=== PATIENT | female | born 1950 | race Asian ===

== ENCOUNTER 2020-05-20 08:34 | Outpatient (CLI) | payer MEDICARE, SELFPAY ==
--- NOTE | 2020-05-20 08:41 | MM_ITS ---
WS: [id number] RIGHT DIGITAL MAMMOGRAPHY WITH CAD CLINICAL INFORMATION: HX OF BREAST CA;LT MASTECTOMY COMPARISON: None. TECHNIQUE: 3 views of the right breast were obtained. FINDINGS: History of bilateral breast reduction. History of left mastectomy. The right breast is composed of heterogeneous fibroglandular density tissue, which can limit the dete ction of small underlying mass lesions. A few punctate calcifications. Vascular calcification. No suspicious focal mass, asymmetry, calcifications, or architectural distortion. No evidence of tan gnancy. MM/[place] [id number] IMPRESSION: BI-RADS: 2-Benign FOLLOW UP: 1 Year Follow-up Recommend return to annual diagnostic mammography.
== END 2020-05-20 08:35 | disposition home or self-care (01) ==
LOC: RADSHAW 08:38
PROVIDERS: PCP Electrodiagnostic Medicine; Visit Provider Electrodiagnostic Medicine
DX: Z85.3 Personal history of malignant neoplasm of breast (principal); Z90.12 Acquired absence of left breast and nipple
CPT/HCPCS: 77065

== ENCOUNTER 2020-07-02 16:51 | Emergency (ER) | payer MEDICARE, SELFPAY ==
[2020-07-02 17:00] VITALS: BP 195/103; PULSE 90; RESP 18; TEMP 36.6; O2SAT 96; BMI 24.0
--- NOTE | 2020-07-02 17:47 | W.ED.SOB ---
HPI - SOB/Dyspnea General: Chief Complaint: Shortness of Breath/Dyspnea Stated Complaint: SHORTNESS OF BREATH, POSS SINUS INFECTION Time Seen by Provider: 07/02/20 17:09 History of Present Illness: HPI Narrative: The patient is a 70-year-old female who is complained of a few days of sinus infection treated by her primary care doctor with Bactrim. She is taken 2 to 3 days of this medication and complains of some sinus pressure but it is slightly improving however her throat has become irritated and she feels like she has thick mucus in it she cannot get out. She is wondering if there is anything she can take to help with this. I discussed with her it is most likely postnasal drip and to use saline spray, guaifenesin, and we will discharge her with a steroid pack to help with the swelling. Return to the ER with worsening symptoms otherwise follow-up with your primary care physician in a couple days to monitor improvement of symptoms Associated symptoms: Deny abdominal pain, chest congestion, chest pain, cough, dizziness, extremity pain, fever(s), lightheadedness, myalgias, nausea, polyuria, rash or vomiting Review of Systems General: Reports: 10 or more systems reviewed and unremarkable except in HPI and below Const: Denies: fever(s) Eyes: Denies: change in vision, blurry vision or eye redness ENMT: Denies: throat pain, enlarged tonsils, odynophagia, swelling of lips/tongue, ear or mastoid pain or nasal congestion Card: Denies: chest pain or lightheadedness Resp: Denies: chest congestion GI: Denies: abdominal pain, nausea or vomiting : Denies: flank pain, difficulty voiding, urinary frequency or urinary urgency Musc: Denies: neck pain, back pain, extremity pain, joint pain, joint redness, limited range of motion or muscle weakness Skin/Breast: Denies: rash, pruritus, erythema, skin pain or skin tenderness Neuro: Denies: dizziness Psych: Denies: anxiety or depression Endo: Denies: polyuria All/Imm: Denies: urticaria, throat swelling or tongue swelling Physical Exam Const: COMMON NORMALS: no acute distress, average body habitus, patient oriented x3, no limitations, healthy appearing, alert and well nourished GENERAL APPEARANCE: cooperative, comfortable, well kempt and well developed ORIENTATION/CONSCIOUSNESS: Yes awake, Yes oriented to person, Yes oriented to place and Yes oriented to time HENMT: COMMON NORMALS: normocephalic, external ears normal and Normal external nose present HEAD & SCALP: normal to inspection and normocephalic NOSE: Normal external nose present EXTERNAL EAR: Yes external ears normal MOUTH: Normal oral and palatal mucosa present THROAT: posterior oropharynx normal OTHER: Mild nasal mucosal edema. Both nares are patent Eye: COMMON NORMALS: Equal, round and reactive pupils present and EOMs intact bilaterally GENERAL EYE: appearance normal, both eyes and all related structures PUPIL: Yes Equal, round and reactive pupils present Neck/C-Spine: COMMON NORMALS: full ROM, no lymphadenopathy, no meningeal signs and no JVD GENERAL: Yes normal visual inspection Lymph: LYMPHATIC: no lymphadenopathy noted Chest: COMMONS NORMALS: normal inspection of the chest and normal palpation of entire chest wall Resp: COMMON NORMALS: normal respiratory effort, No retractions, No use of accessory muscles, clear to auscultation bilaterally and percussion normal EFFORT & INSPECTION: Yes able to speak in complete sentences AUSCULTATION: clear to auscultation bilaterally PERCUSSION: percussion normal Cardio: COMMON NORMALS: no JVD, regular rate, regular rhythm, S1 normal heart sound present, S2 normal heart sound present and Peripheral pulses 2+ throughout RATE: regular rate RHYTHM: regular rhythm HEART SOUNDS: S1 normal heart sound present and S2 normal heart sound present PERIPHERAL PULSES: Peripheral pulses 2+ throughout GI: COMMON NORMALS: Normal to inspection, nondistended, normoactive bowel sounds present, Soft to palpation, non-tender and no masses INSPECTION: Yes normal to inspection PALPATION: Yes Soft to palpation : COMMON NORMALS: Yes no CVA tenderness BLADDER/KIDNEY EXAM: Yes no CVA tenderness Back/Pelvis: COMMON NORMALS: no CVA tenderness, thoracic and lumbar spine normal to inspection, no thoracic nor lumbar tenderness and thoraco-lumbar ROM normal Extremity: COMMON NORMALS: normal to inspection, full ROM, capillary refill normal, no joint enlargement and no pedal edema GENERAL: Yes normal exam except as noted Neuro: COMMON NORMALS: patient oriented x3, CN's II-XII intact bilaterally, moves all extremities, no focal motor deficits, no sensory deficits noted and gait normal SENSORIUM/ORIENTATION: Yes alert, Yes oriented to person, Yes oriented to place and Yes oriented to time MENINGEAL SIGNS: Yes no meningeal signs Psych: COMMON NORMALS: mental status grossly normal, Normal thought process present, cooperative, normal affect and speech normal APPEARANCE: Yes well kempt ATTITUDE: Yes calm SPEECH: Yes normal speech THOUGHT PROCESS: Normal thought process present Skin: COMMON NORMALS: no rashes or lesions noted GENERAL SKIN EXAM: no rashes or lesions noted Course Vital Signs: Vital signs: Vital Signs Temperature 97.9 F 07/02/20 17:00 Pulse Rate 90 07/02/20 17:00 Respiratory Rate 18 07/02/20 17:00 Blood Pressure 195/103 07/02/20 17:00 Pulse Oximetry 96 07/02/20 17:00 MDM - SOB/Dyspnea MDM Narrative: Medical decision making narrative: The patient is being treated for a sinus infection with Bactrim and most likely has postnasal drip. Recommended nasal spray saline spray and guaifenesin [id number]. Will discharge with Medrol Dosepak as well. Continue Bactrim. Follow-up with primary care physician in 3 to 5 days and return to the ER with worsening symptoms Discharge Plan Discharge Patient Disposition: Home Clinical Impression: Post-nasal drip Condition: Stable Prescriptions: New Medrol ([place]) 4 mg tablets,dose pack See Rx Instructions .ROUTE .COMPLEX Qty: 21 RF: 0 Discharge Orders: Discharge ED (Routine); Ordered 07/02/20 Ordered By: Ruiz Sebastian Referrals: Radhames Quintero DO [Primary Care Provider] - Discharge Diet: Advance as tolerated Discharge Activity: Increase activity as tolerated Patient Instructions: Sinusitis (ED) Activity Restrictions/Additional Instructions: You have postnasal drip from a sinus infection. Please take the steroids to help with this and continue taking your Bactrim antibiotic. You may also help loosen up the mucus with nasal saline [id number] at a drugstore and Mucinex which is also keeh-zsa-pummiug at the drugstore. Return to the ER with worsening symptoms, otherwise follow-up with your primary care physician in a couple days to monitor improvement of your symptoms there. Coding Level of Care Code ED [employer] Cover[employer] Specialist for Enzo Jasmine
[2020-07-02] MEDS: predniSONE 20 mg Tablet 40 MG PO (18:30)
[2020-07-02 18:38] VITALS: BP 164/97; PULSE 72; O2SAT 98
== END 2020-07-02 19:16 | disposition home or self-care (01) ==
PROVIDERS: Emergency Provider Family Medicine; PCP Electrodiagnostic Medicine
DX: R09.82 Postnasal drip (principal)
CPT/HCPCS: 12345; 99282; J7512

== ENCOUNTER 2021-01-27 07:49 | Outpatient (CLI) | payer MEDICARE, SELFPAY ==
--- NOTE | 2021-01-27 07:57 | MM_ITS ---
WS: [id number] Exam: [place] [id number] Date/Time of Exam: 01/27/2021 8:01 AM Reason For Exam: HX OF BREAST CA;LT MASTECTOMY Comparison 01/02/2017, 01/30/2018 and 02/20/2019. 3 views of the right breast are obtained. The left ewa st is surgically absent. The right breast is extremely dense. No sign of suspicious mass, tumor calcification or architectural distortion. No significant change. MM/[place] [id number] IMPRESSION: 1. BI-RADS Category 2-benign Follow-up: 1 year follow-up.
--- NOTE | 2021-01-27 08:34 | XR_ITS ---
WS: [id number] XR chest 2V* [id number] REASON FOR EXAM: PERSONAL HX OF TUBERCULOSIS FINDINGS: The chest is unchanged compared to 02/01/2019. Mild tortuosity of the thoracic aorta. Normal heart size. Calcified granulomatous changes in both hemithoraces. Subtle fibronodular changes in the left lung ap ex. No acute pulmonary parenchymal or pleural abnormality. Degenerative change in the mid and lower thoracic spine. Multiple surgical elaine in the left chest wall. XR/XR chest 2V* [id number] IMPRESSION: No active disease identified.
== END 2021-01-27 07:50 | disposition home or self-care (01) ==
PROVIDERS: PCP Electrodiagnostic Medicine; Visit Provider Electrodiagnostic Medicine
DX: Z86.11 Personal history of tuberculosis (principal); Z85.3 Personal history of malignant neoplasm of breast; Z90.12 Acquired absence of left breast and nipple
CPT/HCPCS: 71046; 77065

== ENCOUNTER → 2021-03-29 08:21 | Outpatient (BNVA) | payer MEDICARE, SELFPAY | PROVIDERS: PCP Electrodiagnostic Medicine; Visit Provider Internal Medicine Rheumatology | DX: M19.041 Primary osteoarthritis, right hand (principal); M19.042 Primary osteoarthritis, left hand; Z79.899 Other long term (current) drug therapy; Z71.89 Other specified counseling; M19.90 Unspecified osteoarthritis, unspecified site; M25.50 Pain in unspecified joint | CPT/HCPCS: 73130; 82306; 86140; 86431; 99203; 99204 ==

== ENCOUNTER 2021-03-29 10:39 | Outpatient (CLI) | payer MEDICARE, SELFPAY ==
--- NOTE | 2021-03-29 10:43 | XR_ITS ---
WS: [id number] Exam: XR hand LT min 3V* [id number] Date/Time of Exam: 03/29/2021 10:45 AM Reason For Exam: M25.50 - Pain in unspecified joint No acute fracture or dislocation. Moderate degenerative changes in the DIP joints. 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 No soft tissue foreign bodies. XR/XR hand LT min 3V* [id number] IMPRESSION: 1. Degenerative changes as described above. 2. No fracture or dislocation.
--- NOTE | 2021-03-29 10:43 | XR_ITS ---
WS: [id number] Exam: XR hand RT min 3V* [id number] Date/Time of Exam: 03/29/2021 10:45 AM Reason For Exam: M25.50 - Pain in unspecified joint No acute fracture or dislocation. Moderately advanced degenerative changes in the DIP joints. Mild de generative changes in the remaining IP and MP joints. Marked DJD at the CMC joint of the thumb. Soft tissue calcification noted along the first metacarpal. XR/XR hand RT min 3V* [id number] IMPRESSION: 1. Degenerative changes as detailed above. 2. No fracture or dislocation.
[2021-03-29 11:39] LABS: C Reactive Protein 0.3 mg/L (0.0-4.9)
[2021-03-29 11:55] LABS: 25 Hydroxy Vitamin D 38 ng/mL (30-100)
[2021-03-31 14:07] LABS: Cyclic Citrullinated Peptide <16 UNITS
== END 2021-03-29 10:40 | disposition home or self-care (01) ==
PROVIDERS: PCP Electrodiagnostic Medicine; Visit Provider Internal Medicine Rheumatology
DX: M19.90 Unspecified osteoarthritis, unspecified site (principal); M25.50 Pain in unspecified joint; Z79.899 Other long term (current) drug therapy
CPT/HCPCS: 36415; 73130; 82306; 85651; 86140; 86200; 86431

== ENCOUNTER → 2021-05-10 09:43 | Outpatient (BNVA) | payer MEDICARE, SELFPAY | PROVIDERS: PCP Electrodiagnostic Medicine; Visit Provider Internal Medicine Rheumatology | DX: M05.79 Rheumatoid arthritis with rheumatoid factor of multiple sites without organ or systems involvement (principal); M19.041 Primary osteoarthritis, right hand; M19.042 Primary osteoarthritis, left hand; Z79.899 Other long term (current) drug therapy; Z11.59 Encounter for screening for other viral diseases; Z11.1 Encounter for screening for respiratory tuberculosis; Z71.85 Encounter for immunization safety counseling; M06.9 Rheumatoid arthritis, unspecified; M19.90 Unspecified osteoarthritis, unspecified site; M25.50 Pain in unspecified joint | CPT/HCPCS: 36415; 80076; 82565; 85025; 85651; 86160; 86162; 86200; 86235; 86255; 86376; 86480; 86704; 86803; 87340; 99214 ==

== ENCOUNTER 2021-05-10 10:39 | Outpatient (CLI) | payer MEDICARE, SELFPAY ==
[2021-05-10 11:29] LABS: Basophils % 0.4 %; Eosinophils # 0.1 10^3/uL (0.0-0.8); Eosinophils % 1.6 %; Hematocrit 39.9 % (37.0-47.0); Hemoglobin 13.4 g/dL (11.5-15.3); Lymphocytes % 18.5 %; Mean Corpuscular HGB Conc 33.6 g/dL (30.0-36.0); Mean Corpuscular Hemoglobin 32.7 pg (28.0-34.0); Mean Corpuscular Volume 97.3 fl (81-99); Monocytes # 0.2 10^3/uL (0.2-0.9); Monocytes % 4.5 %; Neutrophils # 3.83 10^3/uL (1.8-7.7); Neutrophils % 74.6 %; Nucleated Red Blood Cells % 0 %; Platelet Count 280 10^3/cmm (130-400); Red Cell Distribution Width 11.8 % (12.1-15.1); White Blood Count 5.1 10^3/uL (4.0-10.0)
[2021-05-10 11:51] LABS: Alanine Aminotransferase 18 U/L (0-33); Albumin Level 4.7 g/dL (3.5-5.2); Alkaline Phosphatase 97 IU/L (35-105); Aspartate Amino Transferase 18 U/L (0-32); Globulin 2.3 g/dL (1.3-4.6); Total Bilirubin 0.3 mg/dL (0.15-1.2)
[2021-05-10 12:33] LABS: Hepatitis B Core AB, Total Reactive (Nonreactive); Hepatitis B Surface Antigen Non-Reactive (Nonreactive); Hepatitis C Virus Antibody Non-Reactive (Nonreactive)
[2021-05-11 11:28] LABS: COMPLEMENT COMPONENT C3C 121 mg/dL (83-193); COMPLEMENT COMPONENT C4C 32 mg/dL (15-57)
[2021-05-11 16:29] LABS: Erythrocyte Sedimentation Rate 2 mm/hr (0-15)
[2021-05-12 07:28] LABS: Cyclic Citrullinated Peptide <16 UNITS
[2021-05-12 12:28] LABS: COMPLEMENT, TOTAL (CH50) 55 U/mL (31-60)
[2021-05-12 14:17] LABS: Quantiferon Mitogen >10.00 IU/mL; Quantiferon Nil 0.04 IU/mL; Quantiferon Plus TB1 0.58 IU/mL; Quantiferon Plus TB2 0.57 IU/mL; Quantiferon TB Gold POSITIVE (NEGATIVE)
[2021-05-12 16:03] LABS: THYROID PEROXIDASE ANTIBODIES 1 IU/mL (<9)
[2021-05-12 16:52] LABS: CENTROMERE B ANTIBODY <1.0 NEG AI (<1.0 NEG); JO-1 ANTIBODY <1.0 NEG AI (<1.0 NEG); RNP ANTIBODY <1.0 NEG AI (<1.0 NEG); SCL-70 ANTIBODY <1.0 NEG AI (<1.0 NEG); SJOGREN'S ANTIBODY (SS-A) <1.0 NEG AI (<1.0 NEG); SM ANTIBODY <1.0 NEG AI (<1.0 NEG); SS-B <1.0 NEG AI (<1.0 NEG)
[2021-05-12 17:29] LABS: ANA SCREEN, IFA NEGATIVE (NEGATIVE)
[2021-05-14 17:18] LABS: DNA AB (DS) CRITHIDIA,IFA NEGATIVE (NEGATIVE)
== END 2021-05-10 10:40 | disposition home or self-care (01) ==
PROVIDERS: PCP Electrodiagnostic Medicine; Visit Provider Internal Medicine Rheumatology
DX: M06.9 Rheumatoid arthritis, unspecified (principal); Z11.59 Encounter for screening for other viral diseases; Z79.899 Other long term (current) drug therapy; M19.90 Unspecified osteoarthritis, unspecified site; M25.50 Pain in unspecified joint; Z11.1 Encounter for screening for respiratory tuberculosis
CPT/HCPCS: 36415; 80076; 82565; 85025; 85651; 86160; 86162; 86200; 86235; 86255; 86376; 86480; 86704; 86803; 87340

== ENCOUNTER 2021-05-13 13:50 | Outpatient (CLI) | payer MEDICARE, SELFPAY ==
[2021-05-13 14:53] LABS: Hepatitis B Surface Antigen Non-Reactive (Nonreactive)
== END 2021-05-13 13:51 | disposition home or self-care (01) ==
PROVIDERS: PCP Electrodiagnostic Medicine; Visit Provider Internal Medicine Rheumatology
DX: Z11.59 Encounter for screening for other viral diseases (principal); M05.79 Rheumatoid arthritis with rheumatoid factor of multiple sites without organ or systems involvement; R76.8 Other specified abnormal immunological findings in serum; Z79.899 Other long term (current) drug therapy
CPT/HCPCS: 36415; 87340; 87517

== ENCOUNTER → 2021-09-02 10:09 | Outpatient (BNVA) | payer MEDICARE, SELFPAY | PROVIDERS: PCP Electrodiagnostic Medicine; Visit Provider Internal Medicine Rheumatology | DX: M05.79 Rheumatoid arthritis with rheumatoid factor of multiple sites without organ or systems involvement (principal); M19.041 Primary osteoarthritis, right hand; M19.042 Primary osteoarthritis, left hand; R76.8 Other specified abnormal immunological findings in serum; Z79.899 Other long term (current) drug therapy; Z71.85 Encounter for immunization safety counseling | CPT/HCPCS: 99214 ==

== ENCOUNTER 2021-10-07 12:23 | Outpatient (CLI) | payer MEDICARE, SELFPAY ==
[2021-10-07 12:59] LABS: Basophils % 0.5 %; Eosinophils # 0.1 10^3/uL (0.0-0.8); Eosinophils % 2.8 %; Hematocrit 39.9 % (37.0-47.0); Hemoglobin 12.6 g/dL (11.5-15.3); Lymphocytes # 1.4 10^3/uL (0.8-4.8); Lymphocytes % 32.2 %; Mean Corpuscular HGB Conc 31.6 g/dL (30.0-36.0); Mean Corpuscular Hemoglobin 32.7 pg (28.0-34.0); Mean Corpuscular Volume 103.6 fl (81-99); Mean Platelet Volume 10.2 fL (7.4-10.4); Monocytes # 0.3 10^3/uL (0.2-0.9); Neutrophils # 2.51 10^3/uL (1.8-7.7); Nucleated Red Blood Cells % 0 %; Platelet Count 273 10^3/cmm (130-400); Red Blood Count 3.85 10^6/uL (4.1-5.3); Red Cell Distribution Width 12.4 % (12.1-15.1); White Blood Count 4.3 10^3/uL (4.0-10.0)
[2021-10-07 13:34] LABS: Alanine Aminotransferase 21 U/L (0-33); Albumin Level 4.6 g/dL (3.5-5.2); Alkaline Phosphatase 75 IU/L (35-105); Aspartate Amino Transferase 18 U/L (0-32); Globulin 2.3 g/dL (1.3-4.6); Total Bilirubin 0.6 mg/dL (0.15-1.2); Total Protein 6.9 g/dL (6.6-8.7)
[2021-10-08 22:18] LABS: Hepatitis B Virus DNA <10 NOT DETECTED IU/mL (NOT DETECTED); Hepatitis B Virus DNA PCR <1.00 NOT DETECTED Log IU/mL (NOT DETECTED)
== END 2021-10-07 12:24 | disposition home or self-care (01) ==
PROVIDERS: PCP Electrodiagnostic Medicine; Visit Provider Internal Medicine Rheumatology
DX: M05.79 Rheumatoid arthritis with rheumatoid factor of multiple sites without organ or systems involvement (principal); R76.8 Other specified abnormal immunological findings in serum; Z79.899 Other long term (current) drug therapy
CPT/HCPCS: 36415; 80076; 82565; 85025; 86140; 87517

== ENCOUNTER → 2022-01-12 10:06 | Outpatient (BNVA) | payer MEDICARE, SELFPAY | PROVIDERS: PCP Electrodiagnostic Medicine; Visit Provider Internal Medicine Rheumatology | DX: M05.79 Rheumatoid arthritis with rheumatoid factor of multiple sites without organ or systems involvement (principal); M19.041 Primary osteoarthritis, right hand; M19.042 Primary osteoarthritis, left hand; Z79.899 Other long term (current) drug therapy; B19.10 Unspecified viral hepatitis B without hepatic coma; Z86.11 Personal history of tuberculosis; Z71.85 Encounter for immunization safety counseling | CPT/HCPCS: 80076; 82565; 85025; 86140; 99214 ==

== ENCOUNTER 2022-02-07 08:39 | Outpatient (CLI) | payer MEDICARE, SELFPAY ==
--- NOTE | 2022-02-07 08:49 | MM_ITS ---
WS: [id number] DIAGNOSTIC RIGHT DIGITAL BREAST TOMOSYNTHESIS MAMMOGRAPHY WITH CAD. HISTORY: HX OF BREAST Ca; lt mastectomy. COMPARISON: 01/27/2021 and 05/20/2020 Technique: CC, MLO and ML views. Breast composition: The breasts are heterogeneously dense, which may obscure small masses. Benign ca lcifications scattered in the RIGHT breast. Vascular calcifications. MM/[place] [id number] IMPRESSION: BI-RADS: 2-Benign FOLLOW UP: 1 Year Follow-up
== END 2022-02-07 08:40 | disposition home or self-care (01) ==
LOC: RAD 08:39
PROVIDERS: PCP Electrodiagnostic Medicine; Visit Provider Electrodiagnostic Medicine
DX: Z85.3 Personal history of malignant neoplasm of breast (principal); Z90.12 Acquired absence of left breast and nipple
CPT/HCPCS: 77061

== ENCOUNTER → 2022-05-11 10:33 | Outpatient (BNVA) | payer MEDICARE, SELFPAY | PROVIDERS: PCP Electrodiagnostic Medicine; Visit Provider Internal Medicine Rheumatology | DX: M05.79 Rheumatoid arthritis with rheumatoid factor of multiple sites without organ or systems involvement (principal); M19.041 Primary osteoarthritis, right hand; M19.042 Primary osteoarthritis, left hand; Z79.899 Other long term (current) drug therapy; Z71.85 Encounter for immunization safety counseling; Z86.11 Personal history of tuberculosis; B19.10 Unspecified viral hepatitis B without hepatic coma; L72.0 Epidermal cyst | CPT/HCPCS: 36415; 80076; 82565; 85025; 86140; 99214 ==

== ENCOUNTER → 2022-08-23 10:14 | Outpatient (BNVA) | payer MEDICARE, SELFPAY | PROVIDERS: PCP Electrodiagnostic Medicine; Visit Provider Internal Medicine Rheumatology | DX: M05.79 Rheumatoid arthritis with rheumatoid factor of multiple sites without organ or systems involvement (principal); M19.041 Primary osteoarthritis, right hand; M19.042 Primary osteoarthritis, left hand; Z79.899 Other long term (current) drug therapy; Z71.85 Encounter for immunization safety counseling | CPT/HCPCS: 36415; 80076; 82565; 85025; 86140; 99214 ==

== ENCOUNTER → 2022-11-30 08:29 | Outpatient (BNVA) | payer MEDICARE, SELFPAY | PROVIDERS: PCP Electrodiagnostic Medicine; Visit Provider Internal Medicine Rheumatology | DX: M05.79 Rheumatoid arthritis with rheumatoid factor of multiple sites without organ or systems involvement (principal); Z79.899 Other long term (current) drug therapy; M25.559 Pain in unspecified hip; M19.041 Primary osteoarthritis, right hand; M19.042 Primary osteoarthritis, left hand; Z71.85 Encounter for immunization safety counseling | CPT/HCPCS: 73502; 99214 ==

== ENCOUNTER → 2022-12-26 07:19 | Outpatient (BNVA) | payer MEDICARE, SELFPAY | PROVIDERS: PCP Electrodiagnostic Medicine; Referring Provider Internal Medicine Rheumatology; Visit Provider Student in an Organized Health Care Education/Training Program | DX: M79.641 Pain in right hand (principal); M67.441 Ganglion, right hand | CPT/HCPCS: 73130; 99204 ==

== ENCOUNTER 2023-01-04 08:55 | Day surgery (SDC) | payer MEDICARE, SELFPAY ==
[2023-01-02 09:23] VITALS: BMI 24.3
[2023-01-04] VITALS (7 sets, daily range): BP systolic 121–158; BP diastolic 71–93; PULSE 63–74; RESP 16–20; TEMP 36.1–36.4; O2SAT 94–98
[2023-01-04] MEDS: sodium chloride 0.9% 1,000 ML 30 ML IV (09:35)
[2023-01-04] MEDS: acetaminophen 1,000 MG/100 ML PIGGYBACK 400 MG IV (09:39)
[2023-01-04] MEDS: ketorolac 30 mg/mL INJ IVP ×2 (09:40→09:53)
--- NOTE | 2023-01-04 09:52 | W.PM.OPSUD ---
Surgery/Procedure H&P Update DATE OF PROCEDURE: January 04, 2023 DATE H&P PERFORMED: 12/26/22 CHANGES TO PREVIOUS DOCUMENTATION: None. No change in HPI or symptoms from last office visit. Patient understands the risk benefits complications with surgery as well as the ins and outs of the procedure and elects proceed with surgical intervention. All questions answered. PREOP DIAGNOSIS: Right middle finger mucous cyst PRIMARY INDICATION FOR PROCEDURE: Right middle finger mucous cyst PLANNED PROCEDURE: Operation Date: 01/04/23 11:00 Proposed Procedures p Right Middle Finger Mucous Cyst Excision [id number],M67.441(Right) - Puneet Mendez DO
[2023-01-04] MEDS: ceFAZolin 2,000 MG in sodium chloride 0.9% (plus) 50 ML 100 MG IV (10:28)
[2023-01-04] MEDS: lidocaine 1% INJ 50 mL INJECTION (10:48)
--- NOTE | 2023-01-04 10:58 | SUR.OPER ---
FINGER TOURNIQUET APPLIED AT 1051 BY JEWEL
--- NOTE | 2023-01-04 11:08 | SUR.OPER ---
TOURNIQUET TIME 23MINUTES
--- NOTE | 2023-01-04 11:23 | PM.OP2 ---
Brief Operative Note Date of procedure: 01/04/23 Pre-op diagnosis: Right middle finger mucous cyst Post-op diagnosis: same Procedure Done: Right middle finger mucous cyst excision Right middle finger DIP dorsal osteophyte excision Surgeon: Puneet Mendez Estimated blood loss (mL): 1 Complications: None Post-op Plan: Patient taken to PACU in stable condition recovering well. Pain controlled. Will receive appropriate discharge instructions as well as pain medication postoperatively. Follow-up in the orthopedic office in 2 weeks. Encourage range of motion as tolerated and weightbearing as tolerated right hand. Condition: stable Disposition: same day Coding Level of Care Code Acute Code for Enzo Jasmine
--- NOTE | 2023-01-04 11:24 | PM.PACU ---
PACU note Narrative: Patient taken to PACU in stable condition recovering well. Pain controlled. Digital block on affect right middle finger. Right middle finger dressings on in place clean dry and intact. Fingertip is brisk cap refill less than 2 seconds. Exam: awake Disposition: discharged
--- NOTE | 2023-01-04 11:25 | P.OP_ITS ---
Operative Report Date of procedure: January 04, 2023 Pre-op diagnosis: Preop Diagnosis Right middle finger mucous cyst Procedure: Post-op diagnosis: Right middle finger mucous cyst Procedure done: Right middle finger mucous cyst excision Right middle finger DIP dorsal osteophyte excision Surgeon: Puneet Mendez DO Estimated blood loss: 1 mL Tourniquet time 23 minutes IV fluids: 900 mL Complications: None Findings: See operative report narrative Condition: stable Disposition: same day Brief History: Patient presents to the outpatient setting with findings consistent with a right middle finger mucous cyst.? She has been worked up in the outpatient setting and is failed conservative treatment approach.? Patient has right middle finger noticeable mucous cyst that appears to be associated with DIP arthritis with possible dorsal osteophyte prominence.? Patient's failed multiple needle aspirations. She wishes to proceed with surgical intervention. We talked about the risk benefits complications and alternatives with surgical nonsurgical treatment options.? Understanding risk of surgery she agrees to proceed with a right middle finger mucous cyst excision.? All questions answered. Procedure: Patient was seen evaluated in the preoperative holding area.? Consent was reviewed and signed with patient.? Correct extremity was then marked.? Patient was then seen and evaluated by the anesthesia department once cleared for surgery patient was then taken back to the operative suite patient was placed in supine position and all bony prominences well-padded the patient was properly secured to the bed.? Armboard was applied to the right upper extremity. This point time the right upper extremity was then prepped and draped in standard orthopedic fashion.? A final timeout was performed.? Patient received appropriate preoperative antibiotics. Prior to proceeding with incision sites I then performed digital block of the right middle finger under sterile aseptic technique Finger turnicot was used over the right middle finger to exsanguinate the digit. ? Right middle finger was then identified as well as the mucous cyst over the DIP joint on the midline aspect of the finger.? I then from the eponychial fold made an incision up to the DIP joint and then made a standard L incision to create a full-thickness skin flap to identify the mucous cyst.? Sharp scalpel excision and then switching to a Harrison blade for meticulous dissection under loupe magnification identified a mucous cyst which was then subsequently excised.? Patient was noted to have a large bony prominence of the distal phalanx and osteophyte.? Identified the extensor mechanism this was protected carefully throughout my case.? I incised the tendon longitudinally and then through this longitudinal split of the tendon identified the prominent dorsal osteophyte and then utilized a small rongeur to excise this prominent dorsal osteophyte of the distal phalanx.? Once ostectomy was then complete and smoothed over and laid my skin flap down over the site and mucous cyst was gone as well as patient's dorsal prominence.? Patient did have thin tenuous nature of the skin where the cyst had been compromised with needle decompressions multiple times as a result in order to ellipse the entire cyst out there was a small amount of skin loss directly where the cyst was but this was able to be closed with a simple stitch. I was satisfied with this I then thoroughly irrigated the wound bed.? I utilized interrupted 4-0 Monocryl suture to reapproximate the longitudinal split of the extensor mechanism at its terminal extension.? Next I then removed finger turnicot wound bed was then thoroughly irrigated hemostasis was maintained with bipolar electrocautery.? Next I closed the incision with interrupted nylon suture.? Incision sites were then dressed with Xeroform 4 x 4's Kerlix Maricruz wrap and an Maurilio wrap.? Patient was then awakened from anesthesia and taken to PACU in stable condition. Disposition: Patient taken to PACU in stable condition recovering well.? Dressing on in place clean dry and intact.? Patient was receive appropriate discharge instruction as well as pain medication postoperatively.? Patient may be allowed weightbearing as tolerated to the right hand and encourage range of motion once dressing come down after 72 hours.? Patient to follow-up with me in the office in 2 weeks.? Patient understands and agrees with current plan.? All questions answered.
--- NOTE | 2023-01-04 12:18 | ANES.PREANE2 ---
Pre-Anesthetic Assessment Height/Weight: Height 1.63 m Weight 64.41 kg Temp Pulse Resp BP Pulse Ox O2 Del Method 97.4 F L 63 18 146/78 98 Room Air 01/04/23 11:39 01/04/23 11:54 01/04/23 11:39 01/04/23 11:54 01/04/23 11:54 01/04/23 11:54 Preop Diagnosis: Right middle finger mucous cyst Operation Date: 01/04/23 11:00 Proposed Procedures p Right Middle Finger Mucous Cyst Excision [id number],M67.441(Right) - Puneet Mendez DO Familial anesthetic complications: none Was Beta Desi taken within 24 hours: N/A Was Clonidine taken within 24 hours: N/A Last intake: Intake Last Liquid Date 01/03/23 Last Liquid Time 19:00 Last Solid Date 01/03/23 Last Solid Time 19:00 Social No alcohol and No tobacco Exam alert, oriented x 3, clear to auscultation bilaterally and regular rate & rhythm Airway Submandibular: within normal limits Cervical ROM: within normal limits Mallampati: Class II Dentition: full Metabolic Hyperlipidemia Chronic prednisone Musc/skel Rheumatoid Arthritis Anesthetic Plan ASA status: 3 Anesthesia: MAC Medications/Allergies Home Medications Medication Instructions Recorded Confirmed Last Taken Type simvastatin 40 mg PO DAILY 03/29/21 01/04/23 12/31/22 History prednisone 5 mg tablet See Rx Instructions PO .COMPLEX 07/05/22 01/04/23 12/31/22 Rx PRN joint pain flare #30 tabs hydroxychloroquine 200 mg tablet See Rx Instructions PO .COMPLEX 11/30/22 01/02/23 12/31/22 Rx #135 tabs leflunomide 10 mg tablet 10 mg PO DAILY #30 tabs 11/30/22 01/02/23 12/31/22 Rx tramadol 50 mg tablet 50 mg PO Q8H PRN pain postop 5 01/04/23 Unknown Rx days #15 tabs Allergies Allergy/AdvReac Type Severity Reaction Status Date / Time No Known Allergies Allergy Verified 01/04/23 09:24 PFSH Anesthesia Medical History Cyst of finger Encounter for medication counseling High risk medication use History of hypercholesterolemia Immunization counseling Joint pain in both hands Osteoarthritis of hands, 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
--- NOTE | 2023-01-04 16:33 | ANE.PACU2 ---
Inpatient post-anesthesia follow up: Airway intact: Yes Vital signs: Temperature 97.4 F Pulse Rate 63 Respiratory Rate 18 Blood Pressure 146/78 Pulse Oximetry 98 Oxygen Delivery Me thod Room Air Oxygen Flow Rate Fraction of Inspir ed Oxygen Hydration adequate: Yes Nausea and vomiting: No Pain level: 2 Mental status: Baseline
== END 2023-01-04 12:09 | disposition home or self-care (01) ==
PROVIDERS: PCP Electrodiagnostic Medicine; Visit Provider Student in an Organized Health Care Education/Training Program
PROC: (CPT 26160; principal; 2023-01-04 10:50)
DX: M67.441 Ganglion, right hand (principal); E78.5 Hyperlipidemia, unspecified; Z79.52 Long term (current) use of systemic steroids; M05.9 Rheumatoid arthritis with rheumatoid factor, unspecified
CPT/HCPCS: 26160; 26236; J0131; J0690; J1885; J2704; J2795; J3010; J7030

== ENCOUNTER 2023-01-19 12:24 | Outpatient (CLI) | payer MEDICARE, SELFPAY ==
[2023-01-19 14:04] LABS: Basophils % 0.4 %; Eosinophils # 0.1 10^3/uL (0.0-0.8); Hematocrit 38.1 % (37.0-47.0); Hemoglobin 12.5 g/dL (11.5-15.3); Mean Corpuscular HGB Conc 32.8 g/dL (30.0-36.0); Mean Corpuscular Hemoglobin 31.6 pg (28.0-34.0); Mean Corpuscular Volume 96.5 fl (81-99); Mean Platelet Volume 10.2 fL (7.4-10.4); Monocytes # 0.3 10^3/uL (0.2-0.9); Monocytes % 5.8 %; Neutrophils # 3.21 10^3/uL (1.8-7.7); Neutrophils % 68.4 %; Nucleated Red Blood Cells % 0 %; Platelet Count 270 10^3/cmm (130-400); Red Blood Count 3.95 10^6/uL (4.1-5.3); Red Cell Distribution Width 11.7 % (12.1-15.1); White Blood Count 4.7 10^3/uL (4.0-10.0)
[2023-01-19 14:29] LABS: Alanine Aminotransferase 25 U/L (0-33); Albumin Level 4.4 g/dL (3.5-5.2); Alkaline Phosphatase 89 U/L (35-105); Aspartate Amino Transferase 18 U/L (0-32); Globulin 1.8 g/dL (1.3-4.6); Total Bilirubin 0.2 mg/dL (0.15-1.2); Total Protein 6.2 g/dL (6.6-8.7)
== END 2023-01-19 12:25 | disposition home or self-care (01) ==
PROVIDERS: PCP Electrodiagnostic Medicine; Visit Provider Internal Medicine Rheumatology
DX: M05.79 Rheumatoid arthritis with rheumatoid factor of multiple sites without organ or systems involvement (principal); Z79.899 Other long term (current) drug therapy; M67.441 Ganglion, right hand
CPT/HCPCS: 36415; 80076; 82565; 85025; 86140; 99024

== ENCOUNTER 2023-02-13 09:10 | Outpatient (CLI) | payer MEDICARE, SELFPAY ==
--- NOTE | 2023-02-13 09:17 | MM_ITS ---
WS: [id number] BILATERAL DIAGNOSTIC DIGITAL TOMOSYNTHESIS MAMMOGRAM WITH CAD HISTORY: ANNUAL - HX BR CA COMPARISON: 02/07/2022, 05/20/2020 Bilateral CC, ML and MLO views with tomosynthesis and synthetic mammography submitted. Computer aided detection analyzed. Breast composition: The breasts are heterogeneously dense, which may obscure small masses. No suspici ous masses, microcalcifications or architectural distortion. Stable asymmetries. Benign calcification s. IMPRESSION: MM/[place] [id number] BI-RADS: 2-Benign FOLLOW UP: 1 Year Follow-up
== END 2023-02-13 09:11 | disposition home or self-care (01) ==
PROVIDERS: PCP Electrodiagnostic Medicine; Visit Provider Electrodiagnostic Medicine
DX: Z85.3 Personal history of malignant neoplasm of breast (principal)
CPT/HCPCS: 77061; G0279

== ENCOUNTER → 2023-03-16 13:40 | Outpatient (BNVA) | payer MEDICARE, SELFPAY | PROVIDERS: PCP Electrodiagnostic Medicine; Visit Provider Internal Medicine Rheumatology | DX: M05.79 Rheumatoid arthritis with rheumatoid factor of multiple sites without organ or systems involvement (principal); Z79.899 Other long term (current) drug therapy; M19.041 Primary osteoarthritis, right hand; M19.042 Primary osteoarthritis, left hand; Z71.85 Encounter for immunization safety counseling | CPT/HCPCS: 99214 ==

== ENCOUNTER 2023-06-08 12:38 | Outpatient (CLI) | payer MEDICARE, SELFPAY ==
--- NOTE | 2023-06-08 12:46 | XR_ITS ---
WS: [id number] DEXA (DUAL ENERGY X-RAY ABSORPTIOMETRY) Bone mineral density was performed using a SuperDimension machine. HISTORY: POSTMENOPAUSAL COMPARISON: None available. Lumbar spine BMD (L1-L4): 1.098 g/cm2 T score: -0.7 Z score: 1.0 Total hip BMD: Left: 1.153 g/cm2. T score: 1.2 Z score: 2.8 Right: 1.144 g/cm2. T score: 1.1 Z score: 2.7 10 year probability of a major osteoporotic fracture is 7.8%. IMPRESSION: NORMAL BONE MINERAL DENSITY based upon the WHO classification for females.
== END 2023-06-08 12:39 | disposition home or self-care (01) ==
LOC: RAD 12:38
PROVIDERS: PCP Electrodiagnostic Medicine; Visit Provider Electrodiagnostic Medicine
DX: Z78.0 Asymptomatic menopausal state (principal)
CPT/HCPCS: 77080

== ENCOUNTER 2024-02-22 08:04 | Outpatient (CLI) | payer MEDICARE, SELFPAY ==
--- NOTE | 2024-02-22 08:08 | CT_ITS ---
WS: [id number] CT HEAD NONCONTRAST HISTORY: CHRONIC HEADACHE DISORDER TECHNIQUE: Contiguous axial imaging performed through the brain in 2.5 mm imaging. Bone and soft tiss ue windows. Sagittal and coronal reformats reviewed. All CT scans at [facility] use at least one of these dose optimization techniques: automated exposure control; mA and/or kV adjustment per pa tient size (includes targeted exams where dose is matched to clinical indication); or iterative recon struction. DLP: 1190.56 mGy.cm COMPARISON: None available. No acute intracranial hemorrhage, midline shift or mass effect. Mild atrophy, predominantly bifrontal regions. Very mild small vessel disease. No focal edema. No sheldon or infarct. Ventricles: Normal size with no hydrocephalus. Vascular calcifications are noted in the distal vertebral arteries and also in the intracranial carot id arteries to the cavernous sinuses. Paranasal sinuses: As visualized are clear. Mastoid air cells: Well pneumatized. Calvarium and scalp: Skull is intact with no soft tissue edema or swelling. CT/CT head wo con* [id number] IMPRESSION: 1. No acute intracranial hemorrhage or edema. 2. Mild cerebral atrophy, predominantly bifrontal lobes. 3. Very mild small vessel disease. 4. Moderate atherosclerotic plaque in the distal vertebral and intracranial ca rotid arteries.
== END 2024-02-22 08:05 | disposition home or self-care (01) ==
LOC: RAD 08:06
PROVIDERS: PCP Electrodiagnostic Medicine; Visit Provider Electrodiagnostic Medicine
DX: G44.89 Other headache syndrome (principal); I65.23 Occlusion and stenosis of bilateral carotid arteries; I65.03 Occlusion and stenosis of bilateral vertebral arteries
CPT/HCPCS: 70450

== ENCOUNTER 2024-08-28 09:16 | Outpatient (CLI) | payer MEDICARE, SELFPAY ==
--- NOTE | 2024-08-28 09:18 | MM_ITS ---
WS: [id number] DIAGNOSTIC RIGHT DIGITAL TOMOSYNTHESIS MAMMOGRAPHY WITH CAD. HISTORY: HX OF BREAST CA COMPARISON: 02/13/2023, 02/07/2022 Technique: CC, MLO and ML views. Breast composition: The breasts are heterogeneously dense, which may obscure small masses. Scattered arterial and round punctate calcifications. No suspicious masses or groupings of calcifications. MM/MM diag RT tomosynthesis [id number] IMPRESSION: BI-RADS: 2 - Benign FOLLOW UP: 1 Year Follow-up
== END 2024-08-28 09:17 | disposition home or self-care (01) ==
LOC: RAD 09:17
PROVIDERS: PCP Electrodiagnostic Medicine; Visit Provider Electrodiagnostic Medicine
DX: Z85.3 Personal history of malignant neoplasm of breast (principal); R92.331 Mammographic heterogeneous density, right breast; R92.1 Mammographic calcification found on diagnostic imaging of breast
CPT/HCPCS: 77061; G0279